=== PATIENT | female | born 1965 | race Caucasian/White ===

== ENCOUNTER 2017-01-28 20:55 | Inpatient (IN) | payer SELFPAY ==
--- NOTE | ~2017-01-28 | EGD ---
EGD REPORT [facility] [address] [address] NAME: NANDO LANGSTON : [birth year] STATUS : ADM IN PAT#: [id number] AGE: 51 ADM/REG DATE : 01/29/17 MR#: [id number] REPORT SERV DATE: 01/31/17 DICTATED BY: CHACORTA CARTER DATE: 01/31/17 REPORT STATUS : Draft TRANSCRIBED BY: [facility] DATE: 01/31/17 Endoscopy Center Patient Name: Nando Langston Date of : 1965 Attending MD: CHACORTA CARTER MD Procedure Date No Time: 01/31/2017 Procedure: Upper GI endoscopy Indications: Epigastric abdominal pain, Pancreatitis Medicines: Monitored Anesthesia Care Complications: No immediate complications. Estimated blood loss: None. Procedure: Pre-Anesthesia Assessment: - ASA Grade Assessment: III - A patient with severe systemic disease. After obtaining informed consent, the endoscope was passed under direct vision. Throughout the procedure, the patient's blood pressure, pulse, and oxygen saturations were monitored continuously. The GIF [id number] was introduced through the mouth, and advanced to the third part of duodenum. The upper GI endoscopy was accomplished without difficulty. The patient tolerated the procedure well. Findings: The examined esophagus was normal. The entire examined stomach was normal. No gross lesions were noted in the entire examined duodenum. The cardia and gastric fundus were normal on retroflexion. Impression: - Normal examination with no pathology seen Recommendation: - [facility]. - NPO today. - Observe patient's clinical course. Procedure Code(s): --- Professional --- 64840, Esophagogastroduodenoscopy, flexible, transoral; diagnostic, including collection of specimen(s) by brushing or washing, when performed (separate procedure) Diagnosis Code(s): --- Professional --- R10.13, Epigastric pain K85.9, Acute pancreatitis, unspecified CPT copyright 2013 [employer]. All rights reserved. EGD REPORT [facility] [address] [place] [address] NAME: NANDO LANGSTON : [birth year] STATUS : ADM IN [facility]#: [id number] AGE: 51 ADM/REG DATE : 01/29/17 MR#: [id number] REPORT SERV DATE: 01/31/17 DICTATED BY: CHACORTA CARTER DATE: 01/31/17 REPORT STATUS : Draft TRANSCRIBED BY: [facility] DATE: 01/31/17 The codes documented in this report are preliminary and upon zig zag spring machine operator review may be revised to meet current compliance requirements. Chacorta Carter MD CHACORTA CARTER MD 01/31/2017 8:28 AM This report has been signed electronically. Number of Addenda: 0 Note Initiated On: 01/31/2017 8:11 AM Scope Withdrawal Time 0 hours 0 minutes 0 seconds [address] [place] [address]
--- NOTE | ~2017-01-28 | CN ---
Consultation Report [facility] [address] [place]. [address] NAME: NANDO LANGSTON : [birth year] STATUS : ADM IN PAT#: [id number] AGE: 51 ADM/REG DATE : 01/29/17 MR#: [id number] REPORT SERV DATE: 01/30/17 DICTATED BY: ANGY NATARAJAN DATE: 01/30/17 REPORT STATUS : Draft TRANSCRIBED BY: MODL DATE: 01/30/17 GI CONSULTATION DATE OF CONSULTATION: 01/30/2017 REASON FOR CONSULTATION: Evaluation and management of abdominal pain, pancreatitis. HISTORY OF PRESENT ILLNESS: Ms. Langston is a 51-year-old female patient, who has been seen by Dr. Conteh in the past for colonoscopy secondary to family history of colon cancer, who presents to [facility] with a chief complaint of abdominal pain, nausea, and vomiting. She gives a history of recent hospitalization at [facility] secondary to acute pancreatitis. She states that she was hospitalized for three days. She tells me that she was not completely well when she left that, but she "wanted to go home." She states that she continued to have abdominal pain at home despite taking prescribed pain medications. She states that her pain markedly increased on the day of admission to the point she could no longer take it, so she came to the hospital for further evaluation. She describes her pain to be centered in the epigastric region with left upper quadrant as well as radiation from the left side into her back 10/10 with associated nausea and vomiting. She has a history of tobacco abuse pack per day for multiple years. She also takes ibuprofen multiple times per week. She has some mild intermittent heartburn and indigestion. She had a CT scan done on admission noncontrasted which did show mild stranding adjacent to the pancreas reflective of early acute pancreatitis. She did have an elevated lipase level of 1181, presently it is 1476. Triglycerides were checked. Triglyceride level was normal at 147. She continues to have pain. Her diet was increased yesterday which increased her abdominal pain. I have discussed with the patient. We will change her back to clear liquid diet. Continue IV fluids at current rate. Secondary to NSAID usage, we will plan on upper endoscopy tomorrow. Also, we will check IgG4 level. PAST MEDICAL HISTORY: Positive for tobacco abuse, recent treatment for pancreatitis at [facility], previous seizure disorder, PVCs, depression, anxiety, irritable bowel syndrome, and GERD. PAST SURGICAL HISTORY: Hysterectomy, cholecystectomy, appendectomy, , left rotator cuff, and colonoscopy. SOCIAL HISTORY: Positive for tobacco. Denies any alcohol. Negative for illicits. Positive for NSAIDs. FAMILY HISTORY: Mother positive for colon cancer. ALLERGIES: PENICILLIN, TETRACYCLINE, AND NAPROSYN. HOME MEDICATIONS: Zyrtec, Eidson, Proventil, Prilosec, Seroquel, and Zoloft. Consultation Report [place] [id number] [facility] [place]. [address] NAME: NANDO LANGSTON : [birth year] STATUS : ADM IN [facility]#: [id number] AGE: 51 ADM/REG DATE : 01/29/17 MR#: [id number] REPORT SERV DATE: 01/30/17 DICTATED BY: ANGY NATARAJAN DATE: 01/30/17 REPORT STATUS : Draft TRANSCRIBED BY: FABIÁN DATE: 01/30/17 REVIEW OF SYSTEMS: A 10-point review of systems has been obtained with pertinent positives being addressed in the history of present illness. PHYSICAL EXAMINATION: VITAL SIGNS: Temperature is 97.5, pulse 65, respirations 18, and blood pressure 111/67. NEUROLOGIC: Reveals an alert, female, resting in bed. No focal deficits. GENERAL: She is cooperative. She is in some distress secondary to left upper quadrant epigastric pain. Awake, alert, and oriented x3. SKIN: Warm, dry, and intact. NECK: No JVD. No palpable nodes. Supple. LUNGS: Coarse throughout with normal respiratory effort exhibited. CARDIOVASCULAR SYSTEM: Regular rate and rhythm. ABDOMEN: Obese with tenderness to palpation in the left upper quadrant without rebound or guarding. Active bowel sounds. EXTREMITIES: No edema. Normal distal pulses. SKIN: Warm, dry, and intact. PERTINENT LABORATORY DATA: Sodium 146, potassium is 4.1, BUN is 7, creatinine 0.57. White count 6.3, hemoglobin 10.8, hematocrit 33, and platelet count 186. Triglyceride 147, total bilirubin 0.2, alkaline phosphatase 100, ALT 34, and AST 17. ASSESSMENT AND PLAN: 1. Acute pancreatitis. 2. Abdominal pain secondary to #1. 3. Tobacco abuse. 4. History of irritable bowel syndrome. 5. Family history of colon cancer. 6. Positive for NSAID usage. PLAN: 1. Decrease to clear liquid diet. 2. N.p.o. after midnight. 3. EGD to rule out duodenal ulcer. 4. IgG4 levels. 5. Encourage tobacco cessation. We will continue her IV fluids and pain and nausea control. We will follow up after endoscopy and testing. REX/FABIÁN Angy RACHEL Cox Consultation Report [address] [place]. [address] NAME: NANDO LANGSTON : [birth year] STATUS : ADM IN [facility]#: [id number] AGE: 51 ADM/REG DATE : 01/29/17 MR#: [id number] REPORT SERV DATE: 01/30/17 DICTATED BY: ANGY NATARAJAN DATE: 01/30/17 REPORT STATUS : Draft TRANSCRIBED BY: FABIÁN DATE: 01/30/17 / [id number] CC: Pablo Zamora II, MD UNKNOWN
--- NOTE | ~2017-01-28 | DS ---
Discharge Summary [facility] [address] [place]. [address] NAME: NANDO STORM : [birth year] STATUS : DIS IN PAT#: [id number] AGE: 51 ADM/REG DATE : 01/29/17 MR#: [id number] REPORT SERV DATE: 02/04/17 DICTATED BY: ELHAM PERKINS II DATE: 02/03/17 REPORT STATUS : Draft TRANSCRIBED BY: MODL DATE: 02/03/17 ADMISSION DATE: 01/29/2017 DISCHARGE DATE: 02/03/2017 DISCHARGE DIAGNOSES: 1. Acute pancreatitis of uncertain etiology. 2. Tobacco use. 3. History of seizure disorder. 4. Gastroesophageal reflux disease. 5. Depression and anxiety. 6. Mild iron deficiency anemia. 7. History of irritable bowel syndrome. CONSULTS: Dr. Delcid with GI. PROCEDURES: EGD which was completely unremarkable. No evidence of duodenal ulcer. BRIEF HPI: The patient is a 51-year-old female with the above history, who presented to [facility] due to abdominal pain and vomiting and found to have pancreatitis. For detailed history and physical examination, please see Dr. Angela's note from 01/29/2017. HOSPITAL COURSE: On admission, the patient had a CT scan, which did show a mild stranding adjacent to the pancreas possibly reflecting early acute pancreatitis, otherwise diverticulosis of the colon with no inflammation. The patient's lipase was 1100 on admission and did trend up to 1400 before trending back down. She was treated in the usual fashion with pain control on IV fluids. There was no evidence of obstruction and given the fact that she was recently treated, but seemed to have a recurrence or could get worse, GI was consulted. They ended up doing an EGD to rule out duodenal ulcer and the above- mentioned scope was unremarkable. In terms of possibly medication related, her lisinopril has a class 2 association with pancreatitis which was discontinued. Otherwise, her remaining medications have fairly low association. Currently, her pain is controlled. She is tolerating a diet again and will follow up with her PCP on Saturday. DISCHARGE MEDICATIONS: 1. Zyrtec 10 mg p.o. daily. 2. Prilosec 20 mg p.o. daily. 3. Seroquel 50 mg p.o. at bedtime. 4. Zoloft 100 mg p.o. daily. 5. [place] 10/325 mg p.o. q.4-6 hours p.r.n. pain. DISCHARGE INSTRUCTIONS: The patient will follow up with her primary care physician tomorrow. DICTATED BY: Elham Perkins II, MD Discharge Summary [address] [address] NAME: NANDO STORM : [birth year] STATUS : DIS IN PAT#: [id number] AGE: 51 ADM/REG DATE : 01/29/17 MR#: [id number] REPORT SERV DATE: 02/04/17 DICTATED BY: ELHAM PERKINS II DATE: 02/03/17 REPORT STATUS : Draft TRANSCRIBED BY: FABIÁN DATE: 02/03/17 JOHN/FABIÁN Elham Perkins II, MD / [id number] CC: Elham Perkins II, MD
--- NOTE | ~2017-01-28 | HP ---
History And Physical [address] [address] NAME: NANDO STORM : [birth year] STATUS : ADM IN PAT#: [id number] AGE: 51 ADM/REG DATE : 01/29/17 MR#: [id number] REPORT SERV DATE: 01/29/17 DICTATED BY: SPENCER NEWBERRY DATE: 01/29/17 REPORT STATUS : Draft TRANSCRIBED BY: MODL DATE: 01/29/17 DATE OF ADMISSION: 01/29/2017 CHIEF COMPLAINT: A 51-year-old female presenting with abdominal pain and vomiting. HISTORY OF PRESENT ILLNESS: The patient's history was obtained through an interview with the patient, coupled with review of [facility] and [facility] medical records. For 10 days the patient has had abdominal pain, nausea, and vomiting. About 10 days ago, she went to [facility], was diagnosed with acute pancreatitis and hospitalized for three days. She feels as if she never improved despite the hospital stay. Finally her abdominal pain over these last few days, have become so unbearable that she knew she had to come back to the hospital. She describes epigastric abdominal pain that radiates to the back, a sharp quality, 10/10 severity. She has had nausea, vomiting, constipation, chills, but no fevers. No shortness of breath. No chest pain. She has a chronic cough that she believes is due to allergies. No rashes. No change in urine habit. REVIEW OF SYSTEMS: Otherwise, a 14-point review of systems was obtained and was negative. PAST MEDICAL HISTORY: 1. Previous seizure disorder. 2. Premature ventricular contractions. 3. Depression and anxiety. 4. Irritable bowel syndrome. 5. Gastroesophageal reflux disorder, seen by Dr. Conteh. 6. Cardiac evaluations including a negative treadmill test in 2011 and negative nuclear cardiac stress test in 2015, followed by Dr. Kyle. 7. Syncope evaluation in 2009. 8. No lung disease despite being a chronic smoker. PAST SURGICAL HISTORY: 1. Hysterectomy. 2. Cholecystectomy. 3. Appendectomy. 4. x2. 5. Left rotator cuff repair. History And Physical [address] [address] NAME: NANDO STORM : [birth year] STATUS : ADM IN PAT#: [id number] AGE: 51 ADM/REG DATE : 01/29/17 MR#: [id number] REPORT SERV DATE: 01/29/17 DICTATED BY: SPENCER NEWBERRY DATE: 01/29/17 REPORT STATUS : Draft TRANSCRIBED BY: FABIÁN DATE: 01/29/17 ALLERGIES: TO PENICILLIN, NAPROXEN, AND TETRACYCLINE. SOCIAL HISTORY: The patient is a smoker. Does not drink alcohol. Lives in [place], [place]. 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 She is single, but has a boyfriend. She has two grown children and many grandchildren. FAMILY HISTORY: Mother with colon cancer. Mother with a heart attack at 57 years of age. Father with a heart attack at 59 years of age. CURRENT MEDICATIONS: 1. Zyrtec 10 mg p.o. daily. 2. Hydrocodone p.r.n. 3. Lisinopril 10 mg p.o. daily. 4. Prilosec 20 mg p.o. daily. 5. Seroquel 50 mg p.o. daily. 6. Zoloft 100 mg p.o. daily. PHYSICAL EXAMINATION: VITAL SIGNS: Temperature 97.1, pulse 74, blood pressure 146/78, respiratory rate 20, and O2 saturation 98% on room air. GENERAL: A pleasant cooperative female, but in evidence of distress secondary to abdominal pain and vomiting. HEENT: Pupils equal, round, and reactive to light. No conjunctival pallor. No scleral icterus. Nares are patent. Oropharynx is clear of obstruction. Dry mucous membranes. NECK: Trachea midline. No thyromegaly. LYMPH: No cervical lymphadenopathy. No supraclavicular lymphadenopathy, although the patient has palpable submandibular salivary glands that are a bit tender. RESPIRATORY: Clear to auscultation at bases. No wheezes, rales, or rhonchi. Normal respiratory effort. CARDIOVASCULAR: Regular rate and rhythm. No murmurs, rubs, or gallops. No extremity edema is appreciated. ABDOMEN: Significant epigastric abdominal pain with guarding. No rebound. No specific right upper quadrant tenderness. No hepatosplenomegaly. DERMATOLOGICAL: Warm and dry extremities. No pallor. No cyanosis. PSYCHIATRIC: Normal affect. Good mood. Alert and oriented x3. LABORATORY DATA: White blood cell count 10.5, hemoglobin 12, hematocrit 37, and platelets 273. Sodium 140, potassium 4.1, chloride 105, bicarb 28, BUN 13, creatinine 2.7, glucose 100, and lipase 1181. Liver enzymes within normal limits. Urinalysis negative for infection. STUDIES: CT scan of the abdomen shows pancreatitis. History And Physical [place] [address] [place] [place]. [address] NAME: NANDO STORM : [birth year] STATUS : ADM IN PAT#: [id number] AGE: 51 ADM/REG DATE : 01/29/17 MR#: [id number] REPORT SERV DATE: 01/29/17 DICTATED BY: SPENCER NEWBERRY DATE: 01/29/17 REPORT STATUS : Draft TRANSCRIBED BY: FABIÁN DATE: 01/29/17 ASSESSMENT AND PLAN: Acute pancreatitis, but the patient is status post cholecystectomy, and has no history of alcohol use at all. Check an ionized calcium. Check fasting lipid panel. Reviewing the patient's medications, the medications that have no current known risks include hydrocodone, Zyrtec, and Seroquel. I would like to hold omeprazole because it holds a class 1b risk for onset of pancreatitis and also hold lisinopril as it carries a class 3 risk for pancreatitis. It is also noted that Zoloft has a class 4 risk for pancreatitis, but I have elected to continue this medication for now. We will make the patient n.p.o. Place on IV fluids and begin a REPOSSESSOR Dilaudid pump. KPL/MODL Spencer Newberry M.D. / [id number] CC: MD Gil Nowak II, M.D. Donald Hetzel, M.D.
[~2017-01-28 20:55] MED LIST: ASAB PO; CYMBALTA60 PO; FOLIC PO; NEXIUM20 M1 PO; NITROSTAT0.4 MG SL; NORCO1 TA1 PO; SINGULAIR1 PO; V120 PO; X5 PO; XANAX1 MG PO; ZOL100 PO
[2017-01-28 21:23] LABS: BASOPHILS 0.5 %; BASOPHILS ABSOLUTE 0.05 10/3/uL (0.0-0.16); EOSINOPHILS 2.8 %; EOSINOPHILS ABSOLUTE 0.29 10/3/uL (0.0-0.53); HEMATOCRIT 36.7 % (36.0-48.0); HEMOGLOBIN 12.2 g/dL (12.0-16.0); IMMATURE GRANULOCYTES 0.4 %; LYMPHOCYTES 36.9 %; LYMPHOCYTES ABSOLUTE 3.89 10/3/uL (0.67-4.30); MEAN CORPUS HGB CONC 33.2 g/dL (32.0-36.0); MEAN CORPUSCULAR HEMOGLOB 28.8 pg (26.0-34.0); MEAN CORPUSCULAR VOLUME 86.6 fL (80-100); MEAN PLATELET VOLUME 9.5 fL (9.2-13.0); MONOCYTES 3.8 %; NEUTROPHILS 55.6 %; NEUTROPHILS ABSOLUTE 5.87 10/3/uL (2.02-8.40); RBC DISTRIBUTION WIDTH 12.6 % (12.0-16.0); RED CELL COUNT 4.24 10/6/uL (4.0-5.6); WHITE BLOOD CELLS 10.5 10/3/uL (4.5-10.5)
[2017-01-28 21:28] LABS: ASCORBIC ACID (UR NOT ORDER) NEG (NEG); BILIRUBIN, URINE NEGATIVE (NEG); ER URINALYSIS TAT 0 Hrs 09 Mins; KETONE, URINE NEGATIVE (NEG); LEUKOCYTE ESTERASE(NOT OR SMALL (NEG); NITRITE (URINE) NEG (NEG); WBC (NOT ORDERED) (RFLEX) 1 (0-5)
[2017-01-28 21:30] LABS: IMMATURE GRANULOCYTES ABSOLUTE 0.04 10/3/uL (0.0-0.11); MANUAL DIFF NO %; PLATELET COUNT 273 10/3/uL (150-400)
[2017-01-28 21:40] LABS: A/G RATIO 0.9 (0.7-1.9); ALBUMIN 3.6 G/DL (3.5-5.0); ALKALINE PHOSPHATASE 100 U/L (45-117); BUN (BLOOD UREA NITROGEN) 13 MG/DL (6-23); CALCIUM, SERUM 9.2 MG/DL (8.5-10.4); CHLORIDE, SERUM 105 MMOL/L (96-112); CO2 (CARBON DIOXIDE) 28 MMOL/L (24-34); GFR AFRICAN AMERICAN 117 ML/MIN (>=60); GFR NON AFRICAN AMERICAN 101 ML/MIN (>=60); GLOBULIN 4.1 G/DL (2.5-4.1); GLUCOSE, SERUM 100 MG/DL (60-99); POTASSIUM, SERUM 4.1 MMOL/L (3.5-5.3); SGOT(AST) 17 U/L (5-40); SGPT(ALT) 34 U/L (5-65); SODIUM, SERUM 140 MMOL/L (135-148); TOTAL BILIRUBIN 0.2 MG/DL (0-1.2); TOTAL PROTEIN 7.7 G/DL (6.0-8.5)
[2017-01-28 21:49] LABS: BAND NEUTROPHILS 1 %; EOSINOPHILS 2 %; EOSINOPHILS ABSOLUTE (CALC) 0.21 10/3/uL (0.0-0.53); ER DIFF TAT 0 Hrs 30 Mins; LYMPHOCYTES 36 %; LYMPHOCYTES ABSOLUTE (CALC) 3.78 10/3/uL (0.67-4.30); NEUTROPHILS ABSOLUTE (CALC) 6.51 10/3/uL (2.02-8.40); PLATELET ESTIMATE ADQ (ADEQUATE); SEGMENTED NEUTROPHIL (0) 61 %; TOTAL NUCLEATED CELLS 100
[2017-01-28 21:50] LABS: TEARDROP SHAPED RBCS OCC (0-2/OIF)
[2017-01-29] MEDS ORDERED: ZOL100 PO (02:17)
[2017-01-29] MEDS ORDERED: PRILOSEC OTC20 MG PO (02:18)
[2017-01-29] MEDS ORDERED: NORCO1 TA1 PO (02:18)
[2017-01-29] MEDS ORDERED: SEROQUEL50 MG PO (02:18)
[2017-01-29] MEDS ORDERED: PRIN10 PO (02:19)
[2017-01-29] MEDS ORDERED: ZYRTEC ALLGY10 MG PO (02:19)
[2017-01-29 07:01] LABS: CHOL/HDL RATIO(NOT ORDER) 3.8 (0-5); CHOLESTEROL 106 MG/DL (< 200); HDL CHOLESTEROL 28 MG/DL (> 49); LDL CHOLESTEROL 49 MG/DL (< 130); NON-HDL CHOLESTEROL 78 MG/DL (< 160); PHOSPHORUS, SERUM 4.6 MG/DL (2.5-4.5); TRIGLYCERIDE 147 MG/DL (< 150)
[2017-01-29 07:41] LABS: PROCALCITONIN <0.05 ng/mL (<0.5)
[2017-01-30 05:14] LABS: BASOPHILS 0.3 %; BASOPHILS ABSOLUTE 0.02 10/3/uL (0.0-0.16); EOSINOPHILS 3.2 %; HEMOGLOBIN 10.8 g/dL (12.0-16.0); IMMATURE GRANULOCYTES 0.5 %; IMMATURE GRANULOCYTES ABSOLUTE 0.03 10/3/uL (0.0-0.11); LYMPHOCYTES 35.8 %; LYMPHOCYTES ABSOLUTE 2.24 10/3/uL (0.67-4.30); MEAN CORPUS HGB CONC 32.7 g/dL (32.0-36.0); MEAN CORPUSCULAR HEMOGLOB 28.7 pg (26.0-34.0); MEAN CORPUSCULAR VOLUME 87.8 fL (80-100); MEAN PLATELET VOLUME 9.3 fL (9.2-13.0); MONOCYTES 4.3 %; MONOCYTES ABSOLUTE 0.27 10/3/uL (0.21-1.20); NEUTROPHILS 55.9 %; RBC DISTRIBUTION WIDTH 12.6 % (12.0-16.0); RED CELL COUNT 3.76 10/6/uL (4.0-5.6); WHITE BLOOD CELLS 6.3 10/3/uL (4.5-10.5)
[2017-01-30 05:15] LABS: MANUAL DIFF NO %; PLATELET COUNT 186 10/3/uL (150-400)
[2017-01-30 05:24] LABS: CALCIUM, SERUM 8.7 MG/DL (8.5-10.4); CHLORIDE, SERUM 111 MMOL/L (96-112); CO2 (CARBON DIOXIDE) 29 MMOL/L (24-34); CREATININE 0.57 MG/DL (0.55-1.02); GFR AFRICAN AMERICAN 125 ML/MIN (>=60); GFR NON AFRICAN AMERICAN 108 ML/MIN (>=60); GLUCOSE, SERUM 86 MG/DL (60-99); POTASSIUM, SERUM 4.1 MMOL/L (3.5-5.3); SODIUM, SERUM 146 MMOL/L (135-148)
[2017-01-30 05:25] LABS: BUN (BLOOD UREA NITROGEN) 7 MG/DL (6-23)
[2017-01-31 05:34] LABS: BASOPHILS 0.4 %; BASOPHILS ABSOLUTE 0.02 10/3/uL (0.0-0.16); EOSINOPHILS 3.2 %; EOSINOPHILS ABSOLUTE 0.16 10/3/uL (0.0-0.53); HEMATOCRIT 33.2 % (36.0-48.0); HEMOGLOBIN 10.8 g/dL (12.0-16.0); IMMATURE GRANULOCYTES 0.2 %; IMMATURE GRANULOCYTES ABSOLUTE 0.01 10/3/uL (0.0-0.11); LYMPHOCYTES 33.6 %; LYMPHOCYTES ABSOLUTE 1.68 10/3/uL (0.67-4.30); MEAN CORPUS HGB CONC 32.5 g/dL (32.0-36.0); MEAN CORPUSCULAR HEMOGLOB 28.8 pg (26.0-34.0); MEAN CORPUSCULAR VOLUME 88.5 fL (80-100); MEAN PLATELET VOLUME 9.8 fL (9.2-13.0); MONOCYTES 5.4 %; MONOCYTES ABSOLUTE 0.27 10/3/uL (0.21-1.20); NEUTROPHILS 57.2 %; NEUTROPHILS ABSOLUTE 2.86 10/3/uL (2.02-8.40); PLATELET COUNT 205 10/3/uL (150-400); RBC DISTRIBUTION WIDTH 12.6 % (12.0-16.0); RED CELL COUNT 3.75 10/6/uL (4.0-5.6)
[2017-01-31 05:38] LABS: PROTIME (NOT ORD) 13.3 SEC (12.0-14.5)
[2017-01-31 05:39] LABS: BUN (BLOOD UREA NITROGEN) 7 MG/DL (6-23); CALCIUM, SERUM 8.5 MG/DL (8.5-10.4); CHLORIDE, SERUM 111 MMOL/L (96-112); CO2 (CARBON DIOXIDE) 28 MMOL/L (24-34); CREATININE 0.63 MG/DL (0.55-1.02); GFR AFRICAN AMERICAN 121 ML/MIN (>=60); GFR NON AFRICAN AMERICAN 105 ML/MIN (>=60); GLUCOSE, SERUM 78 MG/DL (60-99); MANUAL DIFF NO %; POTASSIUM, SERUM 3.9 MMOL/L (3.5-5.3); SODIUM, SERUM 144 MMOL/L (135-148)
[2017-02-01 05:13] LABS: BASOPHILS 0.3 %; BASOPHILS ABSOLUTE 0.02 10/3/uL (0.0-0.16); EOSINOPHILS 2.8 %; EOSINOPHILS ABSOLUTE 0.16 10/3/uL (0.0-0.53); HEMATOCRIT 32.3 % (36.0-48.0); HEMOGLOBIN 10.5 g/dL (12.0-16.0); LYMPHOCYTES 29.9 %; LYMPHOCYTES ABSOLUTE 1.73 10/3/uL (0.67-4.30); MEAN CORPUS HGB CONC 32.5 g/dL (32.0-36.0); MEAN CORPUSCULAR HEMOGLOB 28.4 pg (26.0-34.0); MEAN CORPUSCULAR VOLUME 87.3 fL (80-100); MEAN PLATELET VOLUME 9.8 fL (9.2-13.0); MONOCYTES ABSOLUTE 0.29 10/3/uL (0.21-1.20); NEUTROPHILS ABSOLUTE 3.59 10/3/uL (2.02-8.40); PLATELET COUNT 195 10/3/uL (150-400); RBC DISTRIBUTION WIDTH 12.5 % (12.0-16.0); WHITE BLOOD CELLS 5.8 10/3/uL (4.5-10.5)
[2017-02-01 05:23] LABS: MANUAL DIFF NO %
[2017-02-01 05:32] LABS: FERRITIN 71 NG/ML (8-252); IRON BINDING CAPACITY 239 MCG/DL (225-410); IRON, SERUM 19 MCG/DL (35-150)
[2017-02-03] MEDS ORDERED: NORCO1 TAB PO (09:40)
[2017-02-04 07:56] LABS: IMMUNOGLOBULIN G SUBCLASS 1 684 mg/dL (405-1011); IMMUNOGLOBULIN G SUBCLASS 2 296 mg/dL (169-786); IMMUNOGLOBULIN G SUBCLASS 3 65 mg/dL (11-85); IMMUNOGLOBULIN G SUBCLASS 4 45 mg/dL (3-201)
[2017-03-21] MEDS ORDERED: SEROQUEL50 MG PO (00:36)
[2017-03-21] MEDS ORDERED: ZOL100 PO (00:37)
[2017-03-21] MEDS ORDERED: ZYRTEC ALLGY10 MG PO (00:38)
[2017-03-21] MEDS ORDERED: PRILOSEC OTC20 MG PO (00:38)
[2017-03-24] MEDS ORDERED: NORCO1 TA1 PO (12:01)
[2017-03-24] MEDS ORDERED: PROTONIX PO (12:02)
[2017-03-24] MEDS ORDERED: HABIT14 TOP (12:02)
[2017-03-24] MEDS ORDERED: ZOFRAN4 PO (12:02)
[2017-04-03] MEDS ORDERED: PROTONIX PO (20:19)
[2017-04-03] MEDS ORDERED: SEROQUEL50 MG PO (20:19)
[2017-04-03] MEDS ORDERED: ZOL100 PO (20:19)
[2017-04-03] MEDS ORDERED: ZYRTEC ALLGY10 MG PO (20:19)
[2017-04-03] MEDS ORDERED: ZOFRAN4 PO (20:20)
[2017-04-03] MEDS ORDERED: NORCO1 TA1 PO (20:20)
[2017-04-07] MEDS ORDERED: AMB5 PO (09:26)
[2017-04-07] MEDS ORDERED: ULTRAM50 PO (09:27)
[2017-04-07] MEDS ORDERED: PEP20 PO (09:27)
== END 2017-02-03 12:37 | disposition home or self-care (01) | DRG 440 ==
LOC: ER 20:55 → 7NO 01-29 02:31
PROVIDERS: Emergency Medicine; Hospitalist; Internal Medicine; Internal Medicine Gastroenterology; Nurse Practitioner Family
PROC: 0DJ08ZZ Inspection of Upper Intestinal Tract, Via Natural or Artificial Opening Endoscopic (ICD-10-PCS; principal; 2017-01-31 08:20)
DX: K85.90 Acute pancreatitis without necrosis or infection, unspecified (principal); F32.9 Major depressive disorder, single episode, unspecified; F17.210 Nicotine dependence, cigarettes, uncomplicated; F41.9 Anxiety disorder, unspecified; D50.9 Iron deficiency anemia, unspecified; K21.9 Gastro-esophageal reflux disease without esophagitis; K58.9 Irritable bowel syndrome, unspecified; Z85.038 Personal history of other malignant neoplasm of large intestine; Z79.1 Long term (current) use of non-steroidal anti-inflammatories (NSAID)
CPT/HCPCS: 74176; 80048; 80053; 80061; 81001; 82330; 82728; 82787; 82787-59; 83540; 83550; 83605; 83690; 83735; 84100; 84145; 84443; 85025; 85610; 87086; 96374; 96375; 99285; A9270-GY; C9113; J1170; J2405